=== PATIENT | female | born 1985 | race Caucasian/White ===

== ENCOUNTER 2023-10-09 08:25 | Inpatient (IN) | payer BC, SELFPAY ==
[2023-10-09 08:32] VITALS: BP 120/86; BMI 27.6
[2023-10-09] MEDS: LR 1000 IV ×2 (09:07→23:02)
[2023-10-09] MEDS: ANCEF 10 IV (09:07)
[2023-10-09] MEDS: TYLENOL 1000 MG PO (09:07)
[2023-10-09] MEDS: BICITRA 30 ML PO (09:07)
[2023-10-09 09:10] LABS: Hematocrit 31.5 % (37.0-47.0); Hemoglobin 10.9 g/dL (12.0-16.0); Mean Corp Hgb Conc. 34.6 g/dL (33.0-37.0); Mean Corpuscular Volume 86.8 fL (81.0-99.0); Mean Platelet Volume 10.4 fL (7.4-10.4); Platelet Count 288 10^3/uL (130-400); Red Blood Cell Count 3.63 10^6/uL (4.20-5.40); Red Cell Dist. Width 14.7 % (11.5-14.5); White Blood Cell Count 9.4 10^3/uL (4.8-10.8)
[2023-10-09] MEDS: TORADOL 15 MG IV ×2 (13:55→20:19)
[2023-10-09] MEDS: REGLAN 10 MG IV ×2 (14:29→20:39)
[2023-10-09] MEDS: ZOFRAN 4 MG IV (17:20)
[2023-10-10] MEDS: TORADOL 15 MG IV ×2 (02:34→08:09)
[2023-10-10 04:42] LABS: Hematocrit 25.9 % (37.0-47.0); Hemoglobin 8.8 g/dL (12.0-16.0); Mean Corpuscular Hgb 29.8 pg (27.0-31.0); Mean Corpuscular Volume 87.8 fL (81.0-99.0); Mean Platelet Volume 10.4 fL (7.4-10.4); Platelet Count 237 10^3/uL (130-400); Red Blood Cell Count 2.95 10^6/uL (4.20-5.40)
[2023-10-10] MEDS: FEOSOL 325 MG PO ×2 (08:08→19:54)
[2023-10-10] MEDS: SENOKOT-S 1 TABLET PO (08:08)
[2023-10-10] MEDS: PRENATAL PLUS 1 TABLET PO (08:08)
[2023-10-10] MEDS: MOTRIN 600 MG PO ×2 (13:38→19:55)
[2023-10-10] MEDS: TYLENOL 650 MG PO (17:34)
--- NOTE | 2023-10-10 19:29 | W.PN.ANS.POP ---
Anesthesia Post Operative
- Anesthesia Post Op Note
Vital Signs Stable-See Nursing Note: Yes
Airway Patent: Yes
Adequate Pain Control: Yes
Change in Mental Status: No
Current Postoperative Nausea & Vomiting: No
Anesthesia Complications: No
General Anesthetic Recall: No
Unplanned Admission: No
Post Op Hydration Adequate: Yes
[2023-10-11] MEDS: FEOSOL 325 MG PO (07:38)
[2023-10-11] MEDS: SENOKOT-S 1 TABLET PO (07:38)
[2023-10-11] MEDS: PRENATAL PLUS 1 TABLET PO (07:38)
[2023-10-11] MEDS: MOTRIN 600 MG PO (07:38)
--- NOTE | 2023-10-11 08:36 | W.DS.TRANS ---
DC Summary - [facility]
-
Discharge Instructions:
Discharge Diagnosis/Procedures Section
Instructions:
Stand-Alone Forms: LDRP Delivery
Changes to Home Medications: No
Discharge Medications:
DC Medications w/original date entered in [facility]
prenat.vits,eva,zmh-bors-raiye 1 tab PO DAILY Supplement 10/09/23
acetaminophen 325 mg tablet 650 mg PO Q4HPRN PRN mild pain #0 tabs 10/11/23
ferrous sulfate 325 mg (65 mg iron) tablet (FeroSul) 325 mg PO DAILY #0 tabs 10/11/23
ibuprofen 600 mg tablet 600 mg PO Q6HPRN PRN cramps #45 tabs 10/11/23
sennosides 8.6 mg-docusate sodium 50 mg tablet (Stool Softener-Stimulant Laxative) 1 tab PO DAILYPRN PRN constipation #0 tabs 10/11/23
Home Medication Changes
Pending Results: No
[2023-10-13 16:20] LABS: Syphilis/T. pallidum Ab Reflex Negative (Negative)
== END 2023-10-11 11:24 | disposition home or self-care (01) | DRG 788 ==
LOC: LDRP 08:25
PROVIDERS: ADMITTING PHYSICIAN Obstetrics & Gynecology
PROC: 6A550ZT Pheresis of Cord Blood Stem Cells, Single (ICD-10-PCS; 2023-10-09)
PROC: 10D00Z1 Extraction of Products of Conception, Low, Open Approach (ICD-10-PCS; 2023-10-09)
DX: O32.8XX0 Maternal care for other malpresentation of fetus, not applicable or unspecified (principal); Z3A.39 39 weeks gestation of pregnancy; Z37.0 Single live birth; O69.82X0 Labor and delivery complicated by other cord entanglement, without compression, not applicable or unspecified; O90.81 Anemia of the puerperium; D64.9 Anemia, unspecified
CPT/HCPCS: 85027; 86780; 86850; 86900; 86901

== ENCOUNTER → 2025-07-11 10:16 | Outpatient (REF) | payer BC, SELFPAY | LOC: WDC 10:16 | PROVIDERS: ATTENDING PHYSICIAN Nurse Practitioner Adult Health | DX: N63.20 Unspecified lump in the left breast, unspecified quadrant (principal); N64.4 Mastodynia; N63.22 Unspecified lump in the left breast, upper inner quadrant | CPT/HCPCS: 76642; 77062; 77066 ==